=== PATIENT | male | born 1955 | race Caucasian/White ===

== ENCOUNTER → 2020-12-28 | Outpatient (CLI) | payer BC ==
[~2020-12-28] MED LIST: ANTIVERT 25MG T25 MG PO; ASPIRIN EC81 MG PO; HYDROCHLOROTHIA25 MG PO; LIPITOR TAB 1010 MG PO; METOPROLOL TART25 MG PO; OMEPRAZOLE40 MG PO; VIBRAMYCIN100 MG PO
[2020-12-28 08:09] LABS: HEMOGLOBIN 14.3 gm/dl (14.0-17.5); RED BLOOD COUNT 4.5 M/UL (4.20-5.50); WHITE BLOOD COUNT 7.6 K/UL (4.5-11.0)
[2020-12-28 08:14] LABS: BUN/CREATININE RATIO 18 (0-10)
== END ==
LOC: LAB 07:12
PROVIDERS: Legal Medicine
DX: I25.10 Atherosclerotic heart disease of native coronary artery without angina pectoris (principal)
CPT/HCPCS: 80053; 80061; 84443; 85027

== ENCOUNTER → 2022-02-12 | Outpatient (CLI) | payer BC | LOC: HEART 5 14:00 | DX: I48.91 Unspecified atrial fibrillation (principal) ==

== ENCOUNTER → 2022-05-21 | Outpatient (CLI) | payer BC | LOC: HEART 5 08:41 | DX: I20.9 Angina pectoris, unspecified (principal) | CPT/HCPCS: 78452; A9502; J2785 ==

== ENCOUNTER 2022-06-25 06:21 | Emergency (ER) | payer BC | END 2022-06-25 09:57 | disposition home or self-care (01) | LOC: ER1 06:21 | DX: S63.501A Unspecified sprain of right wrist, initial encounter (principal); S00.31XA Abrasion of nose, initial encounter; S00.511A Abrasion of lip, initial encounter; I48.91 Unspecified atrial fibrillation; I10 Essential (primary) hypertension; Z79.82 Long term (current) use of aspirin; Z23 Encounter for immunization; Z79.899 Other long term (current) drug therapy; W01.10XA Fall on same level from slipping, tripping and stumbling with subsequent striking against unspecified object, initial encounter; Y92.89 Other specified places as the place of occurrence of the external cause; Y99.0 Civilian activity done for income or pay | CPT/HCPCS: 70160; 70450; 73110; 90471; 90715; 99284 ==